=== PATIENT | male | born 1955 | race Caucasian/White ===

== ENCOUNTER → 2020-03-28 09:22 | Outpatient (CLI) | payer MEDICARE, OTHER, SELFPAY ==
--- NOTE | ~2020-03-28 | XR_ITS ---
EXAMINATION: XR finger 1st LT min 2V, XR hand LT 2V DATE: 03/28/2020 09:44 INDICATION: Arthritis with left hand and thumb pain. TECHNIQUE: 1. Dorsal palmar, lateral and 2 oblique views of the left first digit were obtained 2. Dorsal palmar and lateral views of the left hand were obtained COMPARISON: None FINDINGS: Bone alignment is normal. No fracture. Polyarticular osteoarthritis throughout the left hand, moderat e severity at the first carpal metacarpal joint and mild at the distal radioulnar, triscaphe, first i nterphalangeal and second-fifth distal interphalangeal joints and minimal at several of the metacarpo phalangeal and proximal interphalangeal joints. IMPRESSION: 1. Polyarticular osteoarthritis, moderate severity at the first carpometacarpal joint and minimal to mild at many of the remaining joints of the left hand and wrist. Reviewed, dictated and finalized at location B. [employer] IMPRESSION: 1. Polyarticular osteoarthritis, moderate severity at the first carpometacarpal joint and minimal to mild at many of the remaining joints of the left hand and wrist.
== END ==
DX: E78.2 Mixed hyperlipidemia (principal); R53.83 Other fatigue; E55.9 Vitamin D deficiency, unspecified; Z12.5 Encounter for screening for malignant neoplasm of prostate; M19.032 Primary osteoarthritis, left wrist; M19.042 Primary osteoarthritis, left hand
CPT/HCPCS: 73120; 73140